=== PATIENT | male | born 1950 | race Caucasian/White ===

== ENCOUNTER 2019-09-01 08:09 | Day surgery (SDC) | payer MEDICARE, BC, SELFPAY ==
[2019-08-31 11:30] VITALS: BMI 29.4
[2019-09-01 08:54] VITALS: BP 144/92; PULSE 65; RESP 18; TEMP 36.3; O2SAT 96
[2019-09-01] MEDS: sodium chloride 0.9% 1,000 ML 30 ML IV (08:54)
--- NOTE | 2019-09-01 08:54 | PM.HPUD ---
H&P update H&P Update: DATE OF SURGERY/PROCEDURE: 09/01/19 DATE H&P PERFORMED: 08/16/19 H&P UPDATE INFORMATION: H&P completed within last 30 days and No changes to prior documentation PLANNED PROCEDURE: Operation Date: 09/01/19 09:00 Proposed Procedures p Colonoscopy(Not Applicable) - Stanton Tavares MD
--- NOTE | 2019-09-01 09:02 | ANES.PREANES ---
Pre-Anesthetic Assessment Pre-Anesthetic Assessment: Height/Weight: Height 1.78 m Weight 92.986 kg Temp Pulse Resp BP Pulse Ox 97.4 F L 65 18 144/92 96 09/01/19 08:54 09/01/19 08:54 09/01/19 08:54 09/01/19 08:54 09/01/19 08:54 Proposed Procedure: Operation Date: 09/01/19 09:00 Proposed Procedures p Colonoscopy(Not Applicable) - Stanton Tavares MD Was Beta Mari taken within 24 hours: Yes Last intake: Intake Last Liquid Date 08/31/19 Last Liquid Time 13:00 Last Solid Date 08/30/19 Last Solid Time 18:00 Social: Social History: Tobacco and No alcohol Exam: Pre-Anes Outpt Exam: alert, oriented x 3, clear to auscultation bilaterally and regular rate & rhythm Airway: Cervical ROM: WNL MP: 2 Dentition: False History/ROS: No significant history except as noted and No significant complaints Pulmonary: Pulmonary: None reported CV/HEM: CV/HEM: CAD, HTN and UT : Comments: BPH Hepatic: Hepatic: None reported GI: GI: GERD Musc/skel: Musc/skel: RA Neuropsych: Neuropsych: None reported Anesthetic Plan: ASA status: III Anesthesia: MAC Risk of > 500 ml blood loss (7ml/kg in children): No Meds/Allergies Current Medications: Current Medications Generic Name Dose Route Start Last Admin Trade Name Freq PRN Reason Stop Dose Admin Sodium Chloride 1,000 mls @ 30 ml s/hr 09/01/19 08:45 09/01/19 08:54 Sodium Chloride 0.9% IV 09/02/19 08:44 30 mls/hr .Q24H MICKY Administration Data Anesthesia Cardiac Studies: No Data to Display
[2019-09-01 09:20] VITALS: BP 94/62; PULSE 73; RESP 20; TEMP 37.2; O2SAT 94
[2019-09-01 09:39] VITALS: BP 136/86; PULSE 72; RESP 18; O2SAT 94
== END 2019-09-01 09:54 | disposition home or self-care (01) ==
PROVIDERS: Family Provider Family Medicine; PCP Family Medicine; Visit Provider Surgery
PROC: 0DJD8ZZ Inspection of Lower Intestinal Tract, Via Natural or Artificial Opening Endoscopic (ICD-10-PCS; CPT 45378; principal; 2019-09-01 09:00)
DX: Z12.11 Encounter for screening for malignant neoplasm of colon (principal); Z86.010 Personal history of colon polyps; Z80.0 Family history of malignant neoplasm of digestive organs; K57.30 Diverticulosis of large intestine without perforation or abscess without bleeding; K64.8 Other hemorrhoids; D12.2 Benign neoplasm of ascending colon; I25.10 Atherosclerotic heart disease of native coronary artery without angina pectoris; I10 Essential (primary) hypertension; I25.2 Old myocardial infarction; N40.0 Benign prostatic hyperplasia without lower urinary tract symptoms; K21.9 Gastro-esophageal reflux disease without esophagitis; M19.90 Unspecified osteoarthritis, unspecified site; E78.00 Pure hypercholesterolemia, unspecified; Z87.891 Personal history of nicotine dependence; Z79.82 Long term (current) use of aspirin; Z82.49 Family history of ischemic heart disease and other diseases of the circulatory system
CPT/HCPCS: 12345; 45385; 88305; J7030

== ENCOUNTER 2020-09-16 08:46 | Emergency (ER) | payer MEDICARE, BC, SELFPAY ==
[2020-09-16 08:53] VITALS: BP 158/89; PULSE 65; RESP 16; TEMP 36.6; O2SAT 99; BMI 31.2
--- NOTE | 2020-09-16 09:04 | ED_ITS ---
HPI - Extremity Problem General: Chief complaint: Extremity Injury, Upper Stated complaint: fall, r wrist injury Time Seen by Provider: 09/16/20 08:52 History of Present Illness: HPI Narrative: Patient arrives with right wrist pain suffered after a fall this morning while he is walking on ice. Complaint: extremity pain and joint pain Onset (ago): minute(s) Pain Consistency: constant Location: right and upper extremity Severity scale (1-10): 4 Quality: aching Radiation: none Relieving factors: immobilization Exacerbating factors: range of motion Associated symptoms: Reports no associated symptoms; Deny chest pain, fever(s) or rash Review of Systems Const: Denies: fever(s), chills or body aches Eyes: Denies: change in vision or blurry vision ENMT: Denies: throat pain or nasal congestion Card: Denies: chest pain or dyspnea on exertion Resp: Denies: dyspnea, productive cough or non-productive cough GI: Denies: abdominal pain, nausea or vomiting : Denies: difficulty urinating Musc: Reports: extremity pain, joint pain (Right wrist) and other (Patient denies any other injuries) Skin/Breast: Denies: rash Neuro: Reports: other (Patient did not strike his head); Denies: headache(s) Psych: Denies: anxiety or depression Walter/Lymph: Denies: easy bruising Physical Exam Const: COMMON NORMALS: no acute distress, average body habitus and patient oriented x3 HENMT: COMMON NORMALS: normocephalic HEAD & SCALP: normal to inspection and normocephalic FACE & SINUS: normal facial exam Eye: COMMON NORMALS: conjunctivae normal GENERAL EYE: appearance normal, both eyes and all related structures CONJUNCTIVA: Yes conjunctivae normal Neck/C-Spine: COMMON NORMALS: no JVD Chest: COMMONS NORMALS: normal inspection of the chest Resp: COMMON NORMALS: normal respiratory effort and clear to auscultation bilaterally AUSCULTATION: clear to auscultation bilaterally Cardio: COMMON NORMALS: no JVD, regular rate and regular rhythm RATE: regular rate RHYTHM: regular rhythm GI: COMMON NORMALS: Normal to inspection, nondistended, normoactive bowel sounds present Extremity: RIGHT UPPER EXTREMITY: Yes wrist (Mild deformity) Right wrist: Yes inspection, Yes palpation (Pain with palpation), Yes ROM (Decreased in the wrist fingers are fine) and Yes neurovascular exam (Intact) Neuro: COMMON NORMALS: patient oriented x3 Course Vital Signs: Vital signs: Vital Signs Temperature 97.8 F 09/16/20 08:53 Pulse Rate 66 09/16/20 09:57 Respiratory Rate 18 09/16/20 09:57 Blood Pressure 152/76 09/16/20 09:57 Pulse Oximetry 99 09/16/20 09:57 MDM - Extremity (Nontraumatic) MDM Narrative: Medical decision making narrative: Discussed case with Dr. Fowler. Agrees plan of care. Patient requested Dr. More for follow-up. Neurovascular status good after splinting. Patient tolerated well Discharge Plan Discharge Patient Disposition: Home Clinical Impression: Fracture of wrist Qualifiers: Encounter type: initial encounter Fracture type: closed Laterality: right Qualified Code(s): S62.101A - Fracture of unspecified carpal bone, right wrist, initial encounter for closed fracture Condition: Stable Prescriptions: New tramadol 50 mg tablet 50 mg PO TID PRN (Reason: pain) Qty: 30 RF: 0 No Action atorvastatin [Lipitor] 20 mg Tablet 20 mg PO DAILY RF: 0 aspirin [Aspir-81] 81 mg Tablet,Delayed Release (Dr/Ec) 81 mg PO DAILY RF: 0 tamsulosin [Flomax] 0.4 mg Capsule 0.8 mg PO DAILY RF: 0 amlodipine [Norvasc] 10 mg Tablet 10 mg PO DAILY RF: 0 dutasteride [Avodart] 0.5 mg Capsule 0.5 mg PO DAILY RF: 0 multivitamin Tablet 1 tab PO DAILY RF: 0 Glucosamine Chondroitin 550-30-1 mg Capsule 1 cap PO DAILY RF: 0 Discharge Orders: Discharge ED (Routine); Ordered 09/16/20 Ordered By: Slim Baker Referrals: Nancy Ramirez MD [Primary Care Provider] - Discharge Diet: Usual diet Discharge Activity: Increase activity as tolerated Patient Instructions: Wrist Fracture in Adults (ED), Opioid Safety Activity Restrictions/Additional Instructions: Follow-up with medical provider as directed. Take medications as prescribed. Return to the ER or your medical provider if condition worsens. Please read and understand discharge instructions. If any questions ask please. You will be contacted by the hospital on Thursday for follow-up appointment with orthopedics clinic. Wear the splint at all times. Keep extremity elevated if possible. Coding Level of Care Code ED Product Engineering Manager for Chg Fwd Exam Comprehensive
--- NOTE | 2020-09-16 09:04 | XRR_ITS ---
PROCEDURE INFORMATION: Exam: XR Right Wrist Exam date and time: 09/16/2020 9:04 AM Age: 70 years old Clinical indication: Injury or trauma; Fall; Blunt trauma (contusions or hematomas); Wrist; Right; Additional info: Fall, pain TECHNIQUE: Imaging protocol: XR Right wrist. Views: 3 or more views. COMPARISON: No relevant prior studies available. FINDINGS: Bones/joints: Acute intra-articular fracture of the distal right radius with ulnar displacement of a major fracture fragment. Well corticated ossific densities adjacent to the ulnar styloid. Degenerative change. Soft tissues: Mild soft tissue swelling. XR/XR wrist RT min 3V* [id number] IMPRESSION: Acute intra-articular fracture of the distal right radius with ulnar displacement of a major fracture fragment.
[2020-09-16 09:57] VITALS: BP 152/76; PULSE 66; RESP 18; O2SAT 99
--- NOTE | 2020-09-17 10:28 | DCPLANNER ---
real estate sales manager received message to schedule follow-up appointment with Dr. More. real estate sales manager called ortho and spoke to Neena. real estate sales manager provided patient information. Ortho will contact patient with appointment information.
--- NOTE | 2020-09-19 12:50 | DCPLANNER ---
Patient had a follow up appointment scheduled for 09.17.20 with ortho - patient did attend appointment.
== END 2020-09-16 09:59 | disposition home or self-care (01) ==
PROVIDERS: Emergency Provider Nurse Practitioner Family; PCP Family Medicine
DX: S52.571A Other intraarticular fracture of lower end of right radius, initial encounter for closed fracture (principal); W00.0XXA Fall on same level due to ice and snow, initial encounter; Z79.82 Long term (current) use of aspirin
CPT/HCPCS: 29125; 73110; 99283

== ENCOUNTER → 2020-09-17 13:17 | Outpatient (BNVA) | payer MEDICARE, BC, SELFPAY | PROVIDERS: PCP Family Medicine; Visit Provider Orthopaedic Surgery | DX: Z01.812 Encounter for preprocedural laboratory examination (principal); S62.101A Fracture of unspecified carpal bone, right wrist, initial encounter for closed fracture; X58.XXXA Exposure to other specified factors, initial encounter | CPT/HCPCS: 87635 ==

== ENCOUNTER 2020-09-20 14:09 | Day surgery (SDC) | payer MEDICARE, BC, SELFPAY ==
--- NOTE | 2020-09-20 | SCC_ITS ---
Procedure Done: Open reduction and internal fixation right distal radius 76.5seconds of fluoroscopic guidance, for a cumulative dose of 0.83 mGy, was provided to Dr. More by the radiology department. C-arm images of the RIGHT wrist were saved for the patient's permanent record. [facility]
[2020-09-20 08:42] VITALS: BMI 31.2
[2020-09-20] MEDS: sodium chloride 0.9% 1,000 ML 30 ML IV (14:50)
[2020-09-20] MEDS: midazolam 1 mg/mL INJ 2 mL 2 MG IVP (15:00)
--- NOTE | 2020-09-20 15:04 | ANES.PREANE2 ---
Pre-Anesthetic Assessment Pre-Anesthetic Assessment: Height/Weight: Height 1.78 m Weight 98.883 kg Preop Diagnosis: Fracture right distal radius Proposed Procedure: Operation Date: 09/20/20 16:05 Proposed Procedures p ORIF Wrist 02718 S52.531A(Right) - Thai More MD Familial anesthetic complications: None Was Beta Mari taken within 24 hours: N/A Last intake: Intake Last Liquid Date 09/19/20 Last Liquid Time 21:00 Last Solid Date 09/19/20 Last Solid Time 21:00 Social: Social History: Tobacco and No alcohol Exam: Pre-Anes Outpt Exam: alert, oriented x 3, clear to auscultation bilaterally and regular rate & rhythm Airway: Cervical ROM: WNL MP: 2 Dentition: False CV/HEM: CV/HEM: CAD, HTN and [place] (1998) GI: GI: GERD Musc/skel: Musc/skel: RA Anesthetic Plan: ASA status: 3 Anesthesia: General and Regional (specify below) Risk of > 500 ml blood loss (7ml/kg in children): No Meds/Allergies Current Medications: Current Medications Generic Name Dose Route Start Last Admin Trade Name Freq PRN Reason Stop Dose Admin Midazolam HCl 2 mg 09/20/20 14:39 09/20/20 15:00 Midazolam 1 Mg/M l Inj 2 Ml IVP 2 mg Q5M PRN Administration Preop Anxiety Data Anesthesia Cardiac Studies: No Data to Display
--- NOTE | 2020-09-20 15:05 | ANES.PROC ---
Anesthesia Procedures Procedure/Date: 09/20/20 Nerve Block ^: Nerve Block 1: Main Anesthesia: general anesthesia Time Out Performed: Yes Consent: requested by attending/covering physician, from patient, from other, risks and benefits reviewed and patient agrees to proceed Nerve block location: axillary (R) Anesthesia monitors applied: pulse oximetry, EKG, BP cuff and oxygen Nerve block position: supine Anesthetic Used: ropivicaine 0.5% and with decadron (4 mg) Amount of anesthesia used (mL): 30 Ultrasound used to: recognize landmarks Nerve Stimulator Used?: No Interscalene/Femoral BLK: 2 stimuplex 22 g needle used for position and inplane approach, visualize local anesthetic spread and no vascular puncture identified Injection: neg aspiration of heme and paresthesia +/- Patient Tolerated Procedure: no complications Complications: none
--- NOTE | 2020-09-20 17:55 | W.PM.OPSUD ---
Surgery/Procedure H&P Update DATE OF PROCEDURE: September 20, 2020 DATE H&P PERFORMED: 08/16/19 PREOP DIAGNOSIS: Fracture right distal radius PLANNED PROCEDURE: Operation Date: 09/20/20 16:05 Proposed Procedures p ORIF Wrist 06319 S52.531A(Right) - Thai More MD
--- NOTE | 2020-09-20 19:33 | XR_ITS ---
WS: [id number] C-ARM RADIOGRAPHS RIGHT WRIST; 3 IMAGES HISTORY: RIGHT WRIST FRACTURE COMPARISON: 09/16/2020 Intraoperative imaging during plate and screw fixation distal comminuted radial fracture. Radial frac ture now in good position and alignment. XR/XR wrist RT 2V [id number] IMPRESSION: Intraoperative imaging during ORIF radial fracture.
--- NOTE | 2020-09-20 19:40 | PM.OP ---
Operative Report Date of procedure: September 20, 2020 Pre-op Diagnosis: Fracture right distal radius, intra-articular 3 part Post-op diagnosis: same Post-op Findings: Same Procedure Done: Open reduction and internal fixation right distal radius Implants: [place] Variax mild intermediate length plate Pathology: none sent Anesthesia: Nerve Block (Axillary nerve block) Estimated blood loss (mL): 50 Tourniquet time (min): 41 Findings: Patient had a 3 part intra-articular fracture of the right distal radius consisting of a dorsal ulnar and volar radial fragment. There was sagittal displacement and shortening of both articular fragment Condition: stable Procedure: Initial attempts were made at closed reduction however a satisfactory stable reduction could not be obtained. A decision was made to proceed with open reduction internal fixation.A 5 cm long incision was made along over the flexor carpi radialis tendon. Dissection was carried down through the tendon sheath. Dissection was carried down bluntly to the pronator quadratus. The pronator quadratus was elevated off of the distal radius leaving a cuff for later repair. Closed reduction was accomplished of the distal radius. A [place] Variax wide immediate length plate was applied and positioned. The volar fragment was brought out to length and length and maintained with the volar buttress position of the plate. With the plate in position and the volar fragment secured. Traction was applied across the wrist and a volar directed force across the dorsal ulnar fragment reducing the fragment. It was fixed distally with 5 locking screws and proximally with 3 bicortical screws. The variable angle guide was used to direct to fragment in to the radial styloid fragment and 3 screws into the dorsal lunate facet fragment intraoperative imaging showed excellent position of the hardware. The wound was irrigated with saline. The pronator quadratus was reapproximated with 2-0 Vicryl. Subcutaneous tissues were closed with 2-0 Vicryl. The skin was closed with skin hansel. Sterile dressings were applied. The patient was taken to outpatient surgery in stable condition.
[2020-09-20 19:42] VITALS: BP 142/81; PULSE 67; RESP 18; TEMP 36.6; O2SAT 97
[2020-09-20 20:08] VITALS: BP 150/84; PULSE 57; RESP 20; TEMP 36.3; O2SAT 94
--- NOTE | 2020-09-20 20:30 | ANE.PACU2 ---
Inpatient post-anesthesia follow up: Airway intact: Yes Vital signs: Temperature 97.4 F Pulse Rate 57 Respiratory Rate 20 Blood Pressure 150/84 Pulse Oximetry 94 Oxygen Delivery Me thod Room Air Oxygen Flow Rate Fraction of Inspir ed Oxygen Hydration adequate: Yes Nausea and vomiting: No Pain level: 1 Mental status: Baseline
== END 2020-09-20 20:26 | disposition home or self-care (01) ==
PROVIDERS: PCP Family Medicine; Visit Provider Orthopaedic Surgery
PROC: (CPT 25609; principal; 2020-09-20 16:05)
DX: S52.531A Colles' fracture of right radius, initial encounter for closed fracture (principal); W00.0XXA Fall on same level due to ice and snow, initial encounter; Z79.82 Long term (current) use of aspirin; M19.031 Primary osteoarthritis, right wrist; I25.10 Atherosclerotic heart disease of native coronary artery without angina pectoris; I10 Essential (primary) hypertension; I25.2 Old myocardial infarction; K21.9 Gastro-esophageal reflux disease without esophagitis
CPT/HCPCS: 25609; 64417; 73100; 76000; 76942; C1713; J0690; J1100; J2250; J2704; J2795; J7030

== ENCOUNTER 2020-10-03 09:56 | Outpatient (CLI) | payer MEDICARE, BC, SELFPAY | END 2020-10-03 09:57 | disposition home or self-care (01) | LOC: SPT 09:57 | PROVIDERS: PCP Family Medicine; Visit Provider Orthopaedic Surgery | DX: Z46.89 Encounter for fitting and adjustment of other specified devices (principal); S52.531D Colles' fracture of right radius, subsequent encounter for closed fracture with routine healing; X58.XXXD Exposure to other specified factors, subsequent encounter | CPT/HCPCS: L3908 ==

== ENCOUNTER → 2020-10-24 10:11 | Outpatient (BNVA) | payer MEDICARE, BC, SELFPAY | PROVIDERS: PCP Family Medicine; Visit Provider Orthopaedic Surgery | DX: M19.031 Primary osteoarthritis, right wrist (principal); S52.531A Colles' fracture of right radius, initial encounter for closed fracture; Z98.890 Other specified postprocedural states | CPT/HCPCS: 73110 ==

== ENCOUNTER → 2020-11-21 10:27 | Outpatient (BNVA) | payer MEDICARE, BC, SELFPAY | PROVIDERS: PCP Family Medicine; Visit Provider Orthopaedic Surgery | DX: S52.531A Colles' fracture of right radius, initial encounter for closed fracture (principal); M19.031 Primary osteoarthritis, right wrist; X58.XXXA Exposure to other specified factors, initial encounter; Z98.890 Other specified postprocedural states | CPT/HCPCS: 73110 ==

== ENCOUNTER 2020-12-09 13:24 | Emergency (ER) | payer MEDICARE, BC, SELFPAY ==
[2020-12-09 13:54] VITALS: BP 160/84; PULSE 64; RESP 18; TEMP 36.4; O2SAT 96; BMI 31.5
--- NOTE | 2020-12-09 14:54 | CTR_ITS ---
PROCEDURE INFORMATION: Exam: CT Abdomen And Pelvis With Contrast Exam date and time: 12/09/2020 3:52 PM Age: 70 years old Clinical indication: Abdominal pain; Generalized; Prior surgery; Surgery type: Hernia; Additional info: B/l lower abd pain, fevers TECHNIQUE: Imaging protocol: Computed tomography of the abdomen and pelvis with contrast. Radiation optimization: All CT scans at this facility use at least one of these dose optimization techniques: automated exposure control; mA and/or kV adjustment per patient size (includes targeted exams where dose is matched to clinical indication); or iterative reconstruction. Contrast material: OMNI 300; Contrast volume: 95 ml; Contrast route: INTRAVENOUS (IV); COMPARISON: CT abdomen pelvis w con* [id number] 12/15/2013 9:58 PM RADIATION DOSE METRICS: Total DLP (mGy-cm): 1782.41 FINDINGS: Liver: Normal. No mass. Gallbladder and bile ducts: Normal. No calcified stones. No ductal dilation. Pancreas: Normal. No ductal dilation. Spleen: Normal. No splenomegaly. Adrenal glands: Normal. No mass. Kidneys and ureters: Normal. No hydronephrosis. Stomach and bowel: Mild severity colonic diverticulosis. No inflammatory wall thickening of bowel loops. Negative for bowel obstruction. Negative for bowel perforation. Appendix: No evidence of appendicitis. Intraperitoneal space: Unremarkable. No free air. No significant fluid collection. Vasculature: Scattered atherosclerosis. No aneurysm. No dissection. Lymph nodes: Unremarkable. No enlarged lymph nodes. Urinary bladder: Unremarkable as visualized. Reproductive: Moderate prostate gland enlargement. Bones/joints: Grade 1 L5-S1 spondylolisthesis. Bilateral L5 pars defects.The lumbar spine demonstrates moderate discogenic and apophyseal joint degenerative changes at multiple levels. No acute fractures. Soft tissues: Unremarkable. CT/CT abdomen pelvis w con* [id number] IMPRESSION: Negative for acute pathology in the abdomen or pelvis. Radiation Dose CTDIVOL = (mGy): DLP = 1782.41 (mGy-cm)
[2020-12-09 15:21] LABS: Basophils % 0.3 %; Hematocrit 42.4 % (42.0-52.0); Hemoglobin 14.3 g/dL (11.7-16.6); Lymphocytes % 26.5 %; Mean Corpuscular HGB Conc 33.7 g/dL (30.0-36.0); Mean Corpuscular Hemoglobin 28.1 pg (28.0-34.0); Mean Corpuscular Volume 83.5 fL (80-94); Mean Platelet Volume 10.9 fL (7.4-10.4); Monocytes # 0.6 10^3/uL (0.2-0.9); Monocytes % 16.2 %; Neutrophils # 2.02 10^3/uL (1.8-7.7); Neutrophils % 56.4 %; Nucleated Red Blood Cells % 0 %; Platelet Count 141 10^3/cmm (130-400); Red Blood Count 5.08 10^6/uL (4.1-5.3); Red Cell Distribution Width 13.4 % (12.1-15.1); White Blood Count 3.6 10^3/uL (4.0-10.0)
[2020-12-09 15:24] LABS: Add Urine Microscopic? NO; Charge for UA Resulting for Rev
[2020-12-09 15:33] LABS: Alanine Aminotransferase 42 U/L (0-41); Albumin Level 3.9 g/dL (3.5-5.2); Alkaline Phosphatase 79 IU/L (40-130); Anion Gap 15.7 (5-19); Aspartate Amino Transferase 29 U/L (0-40); Blood Urea Nitrogen 16 mg/dL (8-23); Calcium 8.3 mg/dL (8.5-10.5); Carbon Dioxide 27 mmol/L (22-29); Chloride 102 mmol/L (98-107); Globulin 2.7 g/dL (1.3-4.6); Glomerular Filtration Rate 83.4 mL/min (90-130); Glucose 94 mg/dL (65-115); Lipase 18 U/L (13-60); Osmolality Calculated 293 mOsm/kg (285-295); Potassium 3.7 mmol/L (3.5-5.1); Sodium 141 mmol/L (136-145); Total Protein 6.6 g/dL (6.6-8.7)
[2020-12-09 15:35] LABS: Bilirubin Urine Neg (Negative); Blood Urine Neg (Negative); Glucose Urine UA Norm (Normal); Ketones Urine Negative (Negative); Leukocyte Esterase Urine Negative (Negative); Nitrate Urine Negative (Negative); Protein Urine Neg (Negative); Specific Gravity, Urine 1.015 (1.005-1.030); Urine Appearance Clear (CLEAR); Urine Color Yellow (Yellow); Urobilinogen Urine 1 mg/dL (Negative); pH Urine 5 (5-7)
--- NOTE | 2020-12-09 16:08 | ED_ITS ---
HPI - Abdominal Pain General: Chief Complaint: Abdominal Pain Stated Complaint: AB PAIN Time Seen by Provider: 12/09/20 14:38 History of Present Illness: HPI narrative: Patient is complaining of abdominal pain for about 10 days but it is also been associated with a recent tick bite and headache some body aches night sweats and chills. He denies any chest pain shortness of breath or Covid type symptoms. His stools have been a little bit more on the constipation side he denies any fever or diarrhea as he denies any rashes he did have a tick on him about 10 days ago he has had previous hernia repair on his left abdominal area he vomited once today denies any blood in his stools or his vomitus he has taken some Aleve occasionally but none recently Review of Systems Narrative: General: denies fatigue, night sweats and chills HEENT: denies ear pain, denies nasal congestion, denies vision changes, denies sore throat Neck: denies masses or pain Resp: denies cough, denies shortness of breath, denies pleuritic pain Cardio: denies chest pain, denies edema GI: Mid to lower bilateral abdominal pain, vomiting x1, denies black/tarry or bloody stools : denies hematuria, denies dysuria Neuro: denies headache, denies dizziness, denies motor or sensory changes Musculoskeletal: denies pain, denies swelling Skin: denies rashes Psych: denies SI or HI Endocrine: denies thyroid symptoms, denies lymphadenopathy all over ROS reviewed and patient denies Physical Exam Narrative: EXAM NARRATIVE: General: a/o/3, no distress Head: atraumatic HEENT: normal eyes, normal conjunctiva, normal hearing, normal external nose, normal mouth, mucous membranes moist Neck: FROM, trachea midline Chest: normal expansion, no gross deformities Resp: normal speech, no retractions, no accessory muscle use, CTA bilaterally Cardio: regular rate and rhythm and no murmur, no peripheral edema, normal peripheral pulses GI: soft, flat mild mid bilateral lower is tender, no guarding normal BS : deferred Musculoskeletal: FROM, no pain or gross deformities Neuro: a/o appropriate for age, no gross motor or sensory deficits, CN II-XII grossly intact, normal coordination, normal speech Skin: no rashes Psych: cooperative, normal mood and effect Course Vital Signs: Vital signs: Vital Signs Temperature 97.5 F L 12/09/20 13:54 Pulse Rate 64 12/09/20 13:54 Respiratory Rate 18 12/09/20 13:54 Blood Pressure 160/84 12/09/20 13:54 Pulse Oximetry 96 12/09/20 13:54 MDM - Abdominal Pain MDM Narrative: Medical decision making narrative: Discussed with patient and that tick illness can cause some abdominal pain however were concerned that possibly could he have some type of diverticulitis or other type of colitis or bowel obstruction so she and he are both agreeable to go ahead and check a CAT scan. His white count is on the lower end and his platelets are also on the lower end but his liver functions are normal I do not have any thing to compare it to as he gets his lab drawn at a doctor's office. Discussed with him CT findings are normal. I do not see any rashes on him however discussed with them petechiae and signs and symptoms of recommended spotted fever. They want a go ahead and be treated for tick illness I agree his white count is on the lower and so are his platelets his liver functions have not bumped yet but this can be delayed. Lab Data: Labs: Lab Results 12/09/20 12/09/20 12/09/20 Range/Units 15:00 15:00 15:02 WBC 3.6 L (4.0-10.0) 10^3/ uL RBC 5.08 (4.1-5.3) 10^6/u L Hgb 14.3 (11.7-16.6) g/dL Hct 42.4 (42.0-52.0) % MCV 83.5 (80-94) fL MCH 28.1 (28.0-34.0) pg MCHC 33.7 (30.0-36.0) g/dL RDW 13.4 (12.1-15.1) % Plt Count 141 (130-400) 10^3/c mm MPV 10.9 H (7.4-10.4) fL Neut % (Auto) 56.4 % Lymph % (Auto) 26.5 % [place] % (Auto) 16.2 % Eos % (Auto) 0.0 % Baso % (Auto) 0.3 % Neut # (Auto) 2.02 (1.8-7.7) 10^3/u L Lymph # (Auto) 1.0 (0.8-4.8) 10^3/u L [place] # (Auto) 0.6 (0.2-0.9) 10^3/u L Eos # (Auto) 0.0 (0.0-0.8) 10^3/u L Baso # (Auto) 0.0 (0.0-0.1) 10^3/u L Nucleated RBC % (a uto) 0 % Nucleated RBCs # 0.0 /100WBC Sodium 141 (136-145) mmol/L Potassium 3.7 (3.5-5.1) mmol/L Chloride 102 (98-107) mmol/L Carbon Dioxide 27 (22-29) mmol/L Anion Gap 15.7 (5-19) BUN 16 (8-23) mg/dL Creatinine 0.9 (0.7-1.2) mg/dL GFR Calculation 83.4 L (90-130) mL/min Glucose 94 (65-115) mg/dL Calculated Osmolal ity 293 (285-295) mOsm/k g Calcium 8.3 L (8.5-10.5) mg/dL Total Bilirubin 1.0 (0.15-1.2) mg/dL AST 29 (0-40) U/L ALT 42 H (0-41) U/L Alkaline Phosphata se 79 (40-130) IU/L Total Protein 6.6 (6.6-8.7) g/dL Albumin 3.9 (3.5-5.2) g/dL Globulin 2.7 (1.3-4.6) g/dL Lipase 18 (13-60) U/L Urine Color Yellow (Yellow) Urine Appearance Clear (CLEAR) Urine pH 5 (5-7) Ur Specific Gravit y 1.015 (1.005-1.030) Urine Protein Neg (Negative) Urine Glucose (UA) Norm (Normal) Urine Ketones Negative (Negative) Urine Blood Neg (Negative) Urine Nitrate Negative (Negative) Urine Bilirubin Neg (Negative) Urine Urobilinogen 1 H (Negative) mg/dL Ur Leukocyte Hilda ase Negative (Negative) Discharge Plan Discharge Patient Disposition: Home Clinical Impression: Abdominal pain Qualifiers: Abdominal location: unspecified location Qualified Code(s): R10.9 - Unspecified abdominal pain Tick bite Qualifiers: Encounter type: initial encounter Qualified Code(s): W57.XXXA - Bitten or stung by nonvenomous insect and other nonvenomous arthropods, initial encounter Leukopenia Qualifiers: Leukopenia type: other Qualified Code(s): D72.818 - Other decreased white blood cell count Condition: Stable Prescriptions: New doxycycline hyclate 100 mg tablet 100 mg PO BID 10 Days Qty: 20 RF: 0 No Action hydrocodone-acetaminophen [[place]] 5-325 mg tablet 1 tab PO Q4H PRN (Reason: pain) 7 Days Qty: 40 RF: 0 (DME) Cock Up Splint See Rx Instructions .ROUTE .MEDSUPPLY Qty: 1 RF: 0 oxycodone-acetaminophen [Percocet] 5-325 mg tablet 1 tab PO Q4H PRN (Reason: pain) 7 Days Qty: 30 RF: 0 atorvastatin [Lipitor] 20 mg Tablet 20 mg PO DAILY RF: 0 aspirin [Aspir-81] 81 mg Tablet,Delayed Release (Dr/Ec) 81 mg PO DAILY RF: 0 tamsulosin [Flomax] 0.4 mg Capsule 0.8 mg PO DAILY RF: 0 amlodipine [Norvasc] 10 mg Tablet 10 mg PO DAILY RF: 0 dutasteride [Avodart] 0.5 mg Capsule 0.5 mg PO DAILY RF: 0 multivitamin Tablet 1 tab PO DAILY RF: 0 Glucosamine Chondroitin 550-30-1 mg Capsule 1 cap PO DAILY RF: 0 tramadol 50 mg tablet 50 mg PO TID PRN (Reason: pain) Qty: 30 RF: 0 Discharge Orders: Discharge ED (Routine); Ordered 12/09/20 Ordered By: Neena Deleon Referrals: Nancy Ramirez MD [Primary Care Provider] - Discharge Diet: Usual diet Discharge Activity: Resume usual activity Patient Instructions: Abdominal Pain (ED) Activity Restrictions/Additional Instructions: Monitor for fevers take Tylenol or ibuprofen. Tick illness can cause headaches fatigue body aches and abdominal pain take all of the antibiotics. Follow-up with your provider return if worsening of symptoms monitor for rashes return if stiff neck headaches changes Thank you for choosing [facility] for your healthcare needs today. Please realize this is an emergency room and that we are providing you with a medical screening exam and this may not be complete and all inclusive of all the testing and or work up that you may need to determine your ailment or severity of your illness. It is very important that you follow up as instructed or that you return to the Emergency Department should you have concerns or if your condition changes or worsens in any way. Coding Level of Care Code ED Accounts Manager for Jennifer Richard
[2020-12-09] MEDS: iohexol 300 mg/mL 100 mL Btl IV (16:23)
[2020-12-09] MEDS: doxycycline 100 mg Tablet PO (17:04)
[2020-12-09 17:15] VITALS: BP 149/87; PULSE 60; RESP 15; O2SAT 96
== END 2020-12-09 17:16 | disposition home or self-care (01) ==
PROVIDERS: Emergency Medicine; Emergency Provider Emergency Medicine; PCP Family Medicine
DX: R10.9 Unspecified abdominal pain (principal); D72.818 Other decreased white blood cell count; T14.8XXA Other injury of unspecified body region, initial encounter; W57.XXXA Bitten or stung by nonvenomous insect and other nonvenomous arthropods, initial encounter
CPT/HCPCS: 74177; 80053; 81003; 83690; 85025; 99283; Q9967

== ENCOUNTER 2021-01-25 10:35 | Outpatient (CLI) | payer MEDICARE, BC, SELFPAY ==
--- NOTE | 2021-01-25 10:41 | XR_ITS ---
WS: [id number] Chest 2 views, 01/25/2021 Clinical Data: DYSPNEA/FATIGUE/ATHEROSCLEROTIC HEART DZ Comparison: Portable chest, 12/15/2013. Findings: No nodules, masses or effusions are seen. The heart is normal. The pulmonary vascularity is not increased. No pneumonia or pneumothorax is seen. The aortic arch and descending aorta are minima lly tortuous. XR/XR chest 2V* [id number] Impression: Atherosclerosis.
== END 2021-01-25 10:36 | disposition home or self-care (01) ==
PROVIDERS: PCP Family Medicine; Visit Provider Family Medicine
DX: R06.00 Dyspnea, unspecified (principal); R53.83 Other fatigue; I25.10 Atherosclerotic heart disease of native coronary artery without angina pectoris; I70.90 Unspecified atherosclerosis
CPT/HCPCS: 71046

== ENCOUNTER 2021-09-22 18:42 | Emergency (ER) | payer MEDICARE, BC, SELFPAY ==
[2021-09-22 18:55] VITALS: BP 170/85; PULSE 65; RESP 16; TEMP 36.8; O2SAT 94; BMI 31.5
--- NOTE | 2021-09-22 19:17 | XRR_ITS ---
PROCEDURE INFORMATION: Exam: XR Chest Exam date and time: 09/22/2021 7:17 PM Age: 71 years old Clinical indication: Cough TECHNIQUE: Imaging protocol: XR of the chest. Views: 1 view. COMPARISON: CR XR chest 2V* [id number] 01/25/2021 11:08 AM FINDINGS: Lungs: Minimal left lower lung atelectasis versus infiltrate. Pleural spaces: Unremarkable. No pleural effusion. No pneumothorax. Heart/Mediastinum: Cardiomegaly. Bones/joints: Unremarkable. XR/XR chest 1V portable [id number] IMPRESSION: 1. Minimal left lower lung atelectasis versus infiltrate. 2. Cardiomegaly.
--- NOTE | 2021-09-22 19:19 | W.ED.COVID ---
HPI - COVID General: Chief Complaint: COVID symptoms Stated Complaint: Covid + Time Seen by Provider: 09/22/21 19:02 Source: patient Mode of arrival: ambulatory Triage information: Has fever, cough or shortness of breath. No known COVID + exposure last 14 days History of Present Illness: This patient presents to the emergency department because of persistent dry cough generalized malaise and weakness. He states he was tested positive for COVID-19 last Thursday. He states that he had fever for the first 2 to 3 days of his illness but is not subsequently had any fever. He has had a pulse oximeter at home and his is checks his oxygen level is always been in the 95% range on room air. He states he generally has body aches and fatigue and no energy but has been eating and drinking. He did have some loose stools the first couple of days of his illness but is subsequently not any more loose stools. He has no history of cardiopulmonary disease. Does have history of hypertension but is not diabetic. He is taking all his usual medications as prescribed. His is not currently ill. He has received Covid immunizations previously. complaint: known COVID positive COVID 19 common symptoms: positive fever(s), non-productive cough, fatigue, body aches and diarrhea; negative dyspnea, headache(s), throat pain, nausea or vomiting COVID 19 other sytmptoms: negative chest pain Pertinent comorbid conditions: hypertension COVID Results: Nasal/Oral Coronavirus 2019 PCR Not detected 09/17/20 13:17 09/17/20 Review of Systems Const: Reports: fever(s), body aches and fatigue Eyes: Denies: change in vision or blurry vision ENMT: Denies: throat pain, odynophagia or hoarseness Card: Denies: chest pain, palpitations, irregular heart rhythm, edema, swelling of feet/ankles or syncope Resp: Reports: non-productive cough; Denies: dyspnea or wheezing GI: Reports: diarrhea; Denies: abdominal pain, nausea or vomiting : Denies: flank pain, difficulty urinating or dysuria Musc: Denies: neck pain, back pain or extremity pain Skin/Breast: Denies: rash or pruritus Neuro: Denies: headache(s), numbness in extremities, weakness in extremities or sensory changes Psych: Denies: anxiety or depression Endo: Denies: polyuria or polydipsia Walter/Lymph: Denies: easy bruising or easy bleeding Physical Exam Narrative: EXAM NARRATIVE: Patient makes good eye contact. Speech is goal-directed. No conversational dyspnea. Const: COMMON NORMALS: no acute distress, patient oriented x3 and healthy appearing GENERAL APPEARANCE: comfortable and well developed HENMT: COMMON NORMALS: normocephalic, atraumatic, Normal nasal mucous membranes and turbinates present, moist oral mucous membranes and oropharynx normal HEAD & SCALP: normocephalic and atraumatic NOSE: Normal nasal mucous membranes and turbinates present Eye: COMMON NORMALS: Equal, round and reactive pupils present, EOMs intact bilaterally and no scleral icterus PUPIL: Yes Equal, round and reactive pupils present Neck/C-Spine: COMMON NORMALS: full ROM, no lymphadenopathy, supple, no meningeal signs, no JVD and Thyroid normal THYROID: Thyroid normal Lymph: LYMPHATIC: no lymphadenopathy noted Chest: COMMONS NORMALS: normal inspection of the chest Resp: COMMON NORMALS: normal respiratory effort, No retractions, No use of accessory muscles and clear to auscultation bilaterally AUSCULTATION: clear to auscultation bilaterally Cardio: COMMON NORMALS: no JVD, regular rate, regular rhythm, No murmurs present (Cardio) and Peripheral pulses 2+ throughout RATE: regular rate RHYTHM: regular rhythm PERIPHERAL PULSES: Peripheral pulses 2+ throughout GI: COMMON NORMALS: Normal to inspection, nondistended, normoactive bowel sounds present, Soft to palpation, non-tender and no masses PALPATION: Yes Soft to palpation : COMMON NORMALS: Yes no CVA tenderness BLADDER/KIDNEY EXAM: Yes no CVA tenderness Back/Pelvis: COMMON NORMALS: no CVA tenderness, thoracic and lumbar spine normal to inspection, no thoracic nor lumbar tenderness and thoraco-lumbar ROM normal Extremity: COMMON NORMALS: normal to inspection, full ROM, no joint enlargement, no calf tenderness and no pedal edema Neuro: COMMON NORMALS: patient oriented x3, moves all extremities, no focal motor deficits and no sensory deficits noted MENINGEAL SIGNS: Yes no meningeal signs CRANIAL NERVES: Yes CN normal except as noted Course Vital Signs: Vital signs: Vital Signs Temperature 98.2 F 09/22/21 18:55 Pulse Rate 56 L 09/22/21 19:25 Respiratory Rate 18 09/22/21 19:25 Blood Pressure 171/91 09/22/21 19:25 Pulse Oximetry 95 09/22/21 19:26 MDM - COVID Medical Decision Making Patient's chest x-ray does not show any infiltrates, labs are reassuring at this time. He has normal vital signs with a blood pressure in the 140/60 heart rate in the 70s and pulse oximetry on room air between 95 to 97%. Discussed lack of indication for further work-up or treatment of any kind at this time. We also discussed the fact that monoclonal antibody are not approved currently and that they are not effective against the current predominant variant of COVID-19 infecting the country. We discussed continued home care and reasons to return to the emergency department such as pulse oximetry falling below 90%, chest pains, increasing shortness of breath or any other concerns. He acknowledged our discussion. Stable for discharge at this time. Medical Records I reviewed the patient's medical records. Lab Data I reviewed the patient's lab results. : 09/22/21 19:19 09/22/21 19:19 Laboratory Results WBC 6.3 10^3/uL (4.0-10.0) 09/22/21 19:19 RBC 5.35 10^6/uL (4.1-5.3) H 09/22/21 19:19 Hgb 15.2 g/dL (11.7-16.6) 09/22/21 19:19 Hct 45.5 % (42.0-52.0) 09/22/21 19:19 MCV 85.0 fl (80-94) 09/22/21 19:19 MCH 28.4 pg (28.0-34.0) 09/22/21 19:19 MCHC 33.4 g/dL (30.0-36.0) 09/22/21 19:19 RDW 13.2 % (12.1-15.1) 09/22/21 19:19 Plt Count 125 10^3/cmm (130-400) L 09/22/21 19:19 MPV 12.1 fL (7.4-10.4) H 09/22/21 19:19 Neut % (Auto) 60.0 % 09/22/21 19:19 Lymph % (Auto) 29.5 % 09/22/21 19:19 [place] % (Auto) 10.0 % 02/20/22 19:19 Eos % (Auto) 0.0 % 09/22/21 19:19 Baso % (Auto) 0.2 % 09/22/21 19:19 Neut # (Auto) 3.80 10^3/uL (1.8-7.7) 09/22/21 19:19 Lymph # (Auto) 1.9 10^3/uL (0.8-4.8) 09/22/21 19:19 [place] # (Auto) 0.6 10^3/uL (0.2-0.9) 09/22/21 19:19 Eos # (Auto) 0.0 10^3/uL (0.0-0.8) 09/22/21 19:19 Baso # (Auto) 0.0 10^3/uL (0.0-0.1) 09/22/21 19:19 Nucleated RBC % (auto) 0 % 09/22/21 19:19 Nucleated RBCs # 0.0 /100WBC 09/22/21 19:19 Sodium 142 mmol/L (136-145) 09/22/21 19:19 Potassium 4.1 mmol/L (3.5-5.1) 09/22/21 19:19 Chloride 105 mmol/L (98-107) 09/22/21 19:19 Carbon Dioxide 24 mmol/L (22-29) 09/22/21 19:19 Anion Gap 17.1 (5-19) 09/22/21 19:19 BUN 16 mg/dL (8-23) 09/22/21 19:19 Creatinine 0.8 mg/dL (0.7-1.2) 09/22/21 19:19 GFR Calculation Not Reportable 09/22/21 19:19 Glucose 97 mg/dL (65-115) 09/22/21 19:19 Calculated Osmolality 295 mOsm/kg (285-295) 09/22/21 19:19 Calcium 9.0 mg/dL (8.5-10.5) 09/22/21 19:19 Total Bilirubin 0.7 mg/dL (0.15-1.2) 09/22/21 19:19 AST 28 U/L (0-40) 09/22/21 19:19 ALT 31 U/L (0-41) 09/22/21 19:19 Alkaline Phosphatase 78 IU/L (40-130) 09/22/21 19:19 Total Protein 7.3 g/dL (6.6-8.7) 09/22/21 19:19 Albumin 4.3 g/dL (3.5-5.2) 09/22/21 19:19 Globulin 3.0 g/dL (1.3-4.6) 09/22/21 19:19 Nasal/Oral Coronavirus 2019 PCR Not detected 09/17/20 13:17 09/17/20 Imaging Data CXR: I personally reviewed and interpreted this imaging study as follows: My impression: Cardiomegaly. No evidence of infiltrative disease at this time. Discharge Plan Discharge Patient Disposition: Home Clinical Impression: COVID-19 Condition: Stable Prescriptions: No Action hydrocodone-acetaminophen [[place]] 5-325 mg tablet 1 tab PO Q4H PRN (Reason: pain) 7 Days Qty: 40 0RF (DME) Cock Up Splint See Rx Instructions .ROUTE .MEDSUPPLY Qty: 1 0RF Rx Instructions: As directed oxycodone-acetaminophen [Percocet] 5-325 mg tablet 1 tab PO Q4H PRN (Reason: pain) 7 Days Qty: 30 0RF atorvastatin [Lipitor] 20 mg Tablet 20 mg PO DAILY 0RF aspirin [Aspir-81] 81 mg Tablet,Delayed Release (Dr/Ec) 81 mg PO DAILY 0RF tamsulosin [Flomax] 0.4 mg Capsule 0.8 mg PO DAILY 0RF amlodipine [Norvasc] 10 mg Tablet 10 mg PO DAILY 0RF dutasteride [Avodart] 0.5 mg Capsule 0.5 mg PO DAILY 0RF multivitamin Tablet 1 tab PO DAILY 0RF Glucosamine Chondroitin 550-30-1 mg Capsule 1 cap PO DAILY 0RF tramadol 50 mg tablet 50 mg PO TID PRN (Reason: pain) Qty: 30 0RF Discharge Orders: Discharge ED (Routine); Ordered 09/22/21 Ordered By: Tanmay Schwartz Referrals: Nancy Ramirez MD [Primary Care Provider] - Discharge Diet: Advance as tolerated Discharge Activity: Increase activity as tolerated Patient Instructions: How to Recover from COVID-19 at Home (ED), Opioid Safety Activity Restrictions/Additional Instructions: As we discussed continue to hydrate yourself, to a regular diet. Continue to monitor your temperature as well as your oxygen level in your bloodstream using her pulse oximeter. Should your pulse oximeter show a value less than 90% consistently return for reevaluation or should you develop any concerning symptoms. Coding Level of Care Code ED Poker Room Manager for Jennifer Richard Exam Comprehensive
[2021-09-22 19:25] VITALS: BP 171/91; PULSE 56; RESP 18; O2SAT 95
[2021-09-22 19:26] VITALS: O2SAT 95
[2021-09-22 19:28] LABS: Basophils % 0.2 %; Hematocrit 45.5 % (42.0-52.0); Hemoglobin 15.2 g/dL (11.7-16.6); Lymphocytes # 1.9 10^3/uL (0.8-4.8); Lymphocytes % 29.5 %; Mean Corpuscular HGB Conc 33.4 g/dL (30.0-36.0); Mean Corpuscular Hemoglobin 28.4 pg (28.0-34.0); Mean Platelet Volume 12.1 fL (7.4-10.4); Monocytes # 0.6 10^3/uL (0.2-0.9); Nucleated Red Blood Cells % 0 %; Platelet Count 125 10^3/cmm (130-400); Red Blood Count 5.35 10^6/uL (4.1-5.3); Red Cell Distribution Width 13.2 % (12.1-15.1); White Blood Count 6.3 10^3/uL (4.0-10.0)
[2021-09-22 19:46] LABS: Albumin Level 4.3 g/dL (3.5-5.2); Alkaline Phosphatase 78 IU/L (40-130); Blood Urea Nitrogen 16 mg/dL (8-23); Carbon Dioxide 24 mmol/L (22-29); Chloride 105 mmol/L (98-107); Creatinine Clr Calc Pharmacy 100.2848; Glucose 97 mg/dL (65-115); Osmolality Calculated 295 mOsm/kg (285-295); Sodium 142 mmol/L (136-145); Total Bilirubin 0.7 mg/dL (0.15-1.2); Total Protein 7.3 g/dL (6.6-8.7)
[2021-09-22 20:11] LABS: Alanine Aminotransferase 31 U/L (0-41); Anion Gap 17.1 (5-19); Aspartate Amino Transferase 28 U/L (0-40); Potassium 4.1 mmol/L (3.5-5.1)
[2021-09-22] MEDS: lactated ringers 1,000 ML 1000 ML IV (20:31)
[2021-09-22 21:14] VITALS: BP 156/73; PULSE 54; RESP 17; O2SAT 98
== END 2021-09-22 21:11 | disposition home or self-care (01) ==
PROVIDERS: Emergency Provider Emergency Medicine; PCP Family Medicine
DX: U07.1 COVID-19 (principal); Z79.82 Long term (current) use of aspirin
CPT/HCPCS: 71045; 80053; 85025; 96360; 99283

== ENCOUNTER 2022-08-14 10:09 | Outpatient (CLI) | payer MEDICARE, SELFPAY ==
--- NOTE | 2022-08-14 10:27 | XR_ITS ---
WS: [id number] XR knee RT 3V* [id number] REASON FOR EXAM: R KNEE PAIN FINDINGS: Moderate to significant narrowing of the medial knee joint space with significant subchondral scleros is and marginal osteophytosis of the medial femoral condyle and medial tibial plateau. Moderate lateral knee joint compartment with moderate subchondral sclerosis. There appears to moderate narrowing of the patellofemoral joint space with moderate subchondral scler osis and marginal osteophytosis of the patella and adjacent femoral condyles. The patella appears mayo ewhat superior in location, however this may be due to the lack of flexion at the knee joint. Large complex calcific masses posterior to the right knee joint. XR/XR knee RT 3V* [id number] IMPRESSION: Moderate osteoarthritis of the right knee. Calcified masses are likely present in a popliteal cyst. The size and complexit y of the calcifications suggest other etiology than simple loose bodies. Possib ly crystal deposition disease or synovial chondromatosis.
== END 2022-08-14 10:10 | disposition home or self-care (01) ==
LOC: RAD 10:14
PROVIDERS: PCP Family Medicine; Visit Provider Family Medicine
DX: M17.11 Unilateral primary osteoarthritis, right knee (principal)
CPT/HCPCS: 73562

== ENCOUNTER → 2022-08-26 09:49 | Outpatient (BNVA) | payer MEDICARE, SELFPAY | PROVIDERS: PCP Family Medicine; Referring Provider Family Medicine; Visit Provider Orthopaedic Surgery | DX: M17.11 Unilateral primary osteoarthritis, right knee (principal) | CPT/HCPCS: 99213 ==

== ENCOUNTER → 2023-09-24 18:15 | Outpatient (BNVA) | payer MEDICARE, SELFPAY | PROVIDERS: PCP Family Medicine; Visit Provider Nurse Practitioner | DX: R10.9 Unspecified abdominal pain (principal) | CPT/HCPCS: 81000 ==

== ENCOUNTER → 2024-06-13 08:41 | Outpatient (BNVA) | payer MEDICARE, SELFPAY | PROVIDERS: PCP Family Medicine; Visit Provider Podiatrist Foot & Ankle Surgery | DX: M20.42 Other hammer toe(s) (acquired), left foot (principal); M21.612 Bunion of left foot; M77.42 Metatarsalgia, left foot; M24.575 Contracture, left foot | CPT/HCPCS: 73630; 99204 ==

== ENCOUNTER 2024-07-22 07:58 | Day surgery (SDC) | payer MEDICARE, SELFPAY ==
[2024-07-22] VITALS (10 sets, daily range): BP systolic 125–148; BP diastolic 69–97; PULSE 67–75; RESP 14–18; TEMP 36.4–36.6; O2SAT 92–97; BMI 33.0
[2024-07-22] MEDS: gabapentin 300 mg Capsule PO (08:31)
[2024-07-22] MEDS: CELEcoxib 200 mg Capsule 400 MG PO (08:31)
[2024-07-22] MEDS: sodium chloride 0.9% 1,000 ML 30 ML IV (08:31)
--- NOTE | 2024-07-22 08:57 | P.HPUD_ITS ---
Surgery/Procedure H&P Update DATE OF PROCEDURE: July 22, 2024 DATE H&P PERFORMED: 07/22/24 H&P UPDATE INFORMATION: I have reviewed H&P completed within last 30 days, I have examined patient prior to procedure, No changes to prior documentation and H&P is in [facility] [place] EMR on date indicated PREOP DIAGNOSIS: Hallux, metatarsalgia, hammertoe and tendon contracture all left foot. PLANNED PROCEDURE: Operation Date: 07/22/24 09:25 Proposed Procedures p Left first metatarsal phalangeal joint fusion(Left) - Grant Reed DPM s Gabriel osteotomy left second metatarsal(Left) - [place] Lemos left foot flexor tendon transfer(Left) - [place] Lem[place] left second hammertoe correction(Left) - Grant Reed DPM
--- NOTE | 2024-07-22 09:54 | PM.OPSURHP ---
Providers/Chief Complaint Primary Care Provider: Nancy Ramirez MD Chief Complaint: M20.42 History of Present Illness Luan Palafox is a 74 year old male presenting for a surgical consultation regarding foot deformities, specifically a hallux valgus (bunion) and hammer toe of the left foot. The patient reports significant discomfort, particularly associated with the hammer toe, which exacerbates when weight-bearing. 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 Initial conservative management has involved the use of protective padding to alleviate mechanical irritation; however, the patient expresses the persistence of symptoms. 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 Review of Systems General: Reports: 10 or more systems reviewed and unremarkable except in HPI and below Const: Denies: fever(s) or chills Eyes: Denies: change in vision Card: Denies: chest pain or palpitations Resp: Denies: dyspnea or productive cough GI: Denies: abdominal pain, nausea or vomiting : Denies: flank pain Musc: Reports: extremity pain, joint pain, joint stiffness, limited range of motion and deformity Skin/Breast: Reports: skin tenderness; Denies: rash Neuro: Reports: difficulty walking; Denies: numbness in extremities, sensory changes or frequent falls Psych: Denies: suicidal ideation Walter/Lymph: Denies: easy bruising Medications/Allergies Home Medications Medication Instructions Recorded Confirmed Last Taken Type amlodipine 10 mg tablet (Norvasc) 10 mg PO DAILY 08/31/19 07/22/24 07/21/24 History aspirin 81 mg tablet,delayed 81 mg PO DAILY 08/31/19 07/22/24 07/14/24 History release (Aspir-) atorvastatin 20 mg tablet (Lipitor) 20 mg PO DAILY 08/31/19 07/22/24 07/21/24 History dutasteride 0.5 mg capsule 0.5 mg PO DAILY 08/31/19 07/22/24 07/21/24 History (Avodart) tamsulosin 0.4 mg capsule (Flomax) 0.8 mg PO DAILY 08/31/19 07/22/24 07/21/24 History multivitamin 1 tab PO DAILY 0107/22/24 07/21/24 History Cock Up Splint #1 ea 10/03/20 06/13/24 Unknown Rx trazodone 50 mg tablet 50 mg PO DAILY 07/21/24 07/22/24 07/21/24 History Allergies Allergy/AdvReac Type Severity Reaction Status Date / Time No Known Allergies Allergy Verified 07/22/24 08:10 PFSH PFSH: Social History Smoking and tobacco/nicotine status: never used tobacco/nicotine Vital Signs Vitals Signs: Last Vital Signs Temp 97.8 F 07/22/24 08:11 Pulse 75 07/22/24 08:11 Resp 16 07/22/24 08:11 BP 148/97 07/22/24 08:11 Pulse Ox 94 07/22/24 08:11 O2 Del Method Room Air 07/22/24 08:11 Weight: Weight last 48 hrs Weight 230 lb Physical Exam Narrative: EXAM NARRATIVE: GENERAL: Patient is alert and oriented ?3 and in no acute distress. The following is a focused bilateral lower extremity exam. VASCULAR: Dorsalis pedis and posterior tibial arteries palpable +2. Capillary refill time less than 3 seconds to the distal hallux bilaterally. Calf is supple and nontender proximally and distally. Edema to the left lateral ankle. Pedal hair growth present. NEUROLOGICAL: Epicritic and protopathic sensations grossly intact to the lower extremities. +2 Achilles tendon reflex noted bilaterally. Negative Tinel sign upon percussion of lower extremity nerves. DERMATOLOGICAL: Mild ecchymosis to the left lateral ankle. No fracture blisters, no lacerations or abrasions, no open wounds to the lower extremities. MUSCULOSKELETAL: - Musculoskeletal- Observation of deformity at the first metatarsophalangeal joint (MPJ) of the left foot and the presence of a second hammer toe. Decreased flexion observed secondary to structural stiffness. Tenderness upon palpation consistent with mechanical irritation at the site of the callous. First metatarsal phalangeal joint/bunion deformity at the left foot is track bound and nonreducible, decreased dorsiflexion at 20 degrees with osseous end range of motion. Left great toe is underwriting the left second toe. Left second toe hammertoe contracture with sagittal plane dominance is nonreducible. Tenderness to palpation plantarly at the second metatarsal head. CARDIOVASCULAR: S1, S2, normal rate, normal rhythm. Dorsalis pedis and posterior tibial arteries palpable. LUNGS: Clear to auscltation, no use of acessory muscles, no crackles or wheezes. A&P Assessment and plan (1) Metatarsalgia, left foot: (2) Contracture, left foot: (3) Bunion, left foot: (4) Hammertoe of left foot: Plan Pain has been progressive over years, he was treated approximately 3 years ago and was outlined a conservative management plan which is no longer offering relief with accommodative shoes padding, spacing, anti-inflammatories topically and orally and activity modifications. X-ray left foot 3 views taken 06/13/2024 weightbearing demonstrates Cystic changes at the medial aspect of the left first metatarsal head . Arthrosis at the left second PIPJ, subluxation of the second MTPJ deviating medially, impressive gunbarrel sign and contracture with sagittal plane dominance of the left second toe Hallux noted to be an abducted position. Tibial sesamoid position: 6. 1 ? 2 IM angle is 16?. Hallux abductus angle is 40?. Metatarsal adductus angle is 2?. Sieberg index of 2mm. 74-year-old male with a history of hallux valgus presenting with severe deforming conditions of the left foot, including a bunion and a hammer toe, necessitating surgical repair. The chronic nature of the symptoms, traditionally managed via non-operative measures, has resulted in notable impairment of the patient's daily functional capacity. The recommendation for surgical correction involves fusion of the first MPJ and addressing the hammer toe deformity to prevent progression and alleviate associated discomfort. 1. Callus Surgical correction of underlying deformities is expected to provide relief from symptomatic callus formation. Discussion regarding the resolution of pressure-related calluses post-correction was held with the patient. 2. Hammer Toe Surgical intervention to rectify hammer toe on the left second digit concurrent with the bunion procedure. Will involve realignment and potential tenotomy or arthroplasty as indicated. The patient has been informed regarding the six-week recovery period post-operation. 3. Hallux Valgus Surgical correction via first MPJ fusion planned to correct the bunion deformity. The procedure is scheduled for July 22, with patient agreement on the anticipated recovery period. Risks, benefits, and postoperative expectations, including the need for immobilization, are discussed thoroughly. - Discontinue aspirin one week prior to the planned surgery date. 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 - Watch for signs of infection or complications postoperatively and report any concerns immediately. I reviewed at length with the patient, the risks, potential complications, benefits, alternatives, expectations, and typical outcomes associated with the surgery. The risks and potential complications were explained in detail, including but not limited to infection, wound dehiscence or soft tissue complications, bleeding and hematoma, chronic edema, neuritis or nerve damage producing numbness or chronic pain, CRPS, failure to relieve pain or worsening pain, thick / painful / unsightly scar, limited motion / stiffness, malposition, delayed union, malunion, or nonunion, fracture, reaction to implants, anesthetic complications, venous thromboembolism, and deformity recurrence. I discussed the notion of no regrets with the patient as it pertains to complications and outcomes. The patient seemed to understand the nature of the proposed care and required convalescence. They asked appropriate questions, answered to their satisfaction. They are aware no guarantees can be made as to a satisfactory outcome and they understand there may be other possible unforeseen complications or outcomes not listed here that will be treated accordingly if they arise. There were no written or implied guarantees given to the patient. They gave informed consent to proceed. Planning on left first metatarsal phalangeal joint fusion, left Gabriel osteotomy, left flexor tendon transfer, left second hammertoe correction outpatient for July 22 2024 sooner if availability allows Coding Level of Care Code Acute Code for [facility] Diagnoses Metatarsalgia, left foot M77.42 Contracture, left foot M24.575 Bunion, left foot M21.612 Hammertoe of left foot M20.42
--- NOTE | 2024-07-22 10:05 | P.ANESASSM_ITS ---
Pre-Anesthetic Assessment Height/Weight: Height 5 ft 10 in Weight 230 lb Temp Pulse Resp BP Pulse Ox O2 Del Method 97.8 F 75 16 148/97 94 Room Air 07/22/24 08:11 07/22/24 08:11 07/22/24 08:11 07/22/24 08:11 07/22/24 08:11 07/22/24 08:11 Preop Diagnosis: Hallux, metatarsalgia, hammertoe and tendon contracture all left foot. Operation Date: 07/22/24 09:25 Proposed Procedures p Left first metatarsal phalangeal joint fusion(Left) - [place] Lemos Gabriel osteotomy left second metatarsal(Left) - [place] Lemos left foot flexor tendon transfer(Left) - [place] Lemos left second hammertoe correction(Left) - Grant Reed DPM Was Beta Mari taken within 24 hours: N/A Was Clonidine taken within 24 hours: N/A Last intake: Intake Last Liquid Date 07/21/24 Last Liquid Time 21:00 Last Solid Date 07/21/24 Last Solid Time 18:00 Social No alcohol and No tobacco Exam alert, oriented x 3, clear to auscultation bilaterally and regular rate & rhythm Airway Submandibular: within normal limits Cervical ROM: within normal limits Mallampati: Class III Dentition: false Anesthetic Plan ASA status: 2 Anesthesia: General Other: No prior issues with anesthesia NPO since yesterday History of hypertension on amlodipine. Preop BP 148/97 Denies any pulmonary issues METs greater than 4 Plan for general anesthesia with local via surgeon Medications/Allergies Home Medications Medication Instructions Recorded Confirmed Last Taken Type amlodipine 10 mg tablet (Norvasc) 10 mg PO DAILY 08/31/19 07/22/24 07/21/24 History aspirin 81 mg tablet,delayed 81 mg PO DAILY 08/31/19 07/22/24 07/14/24 History release (Aspir-) atorvastatin 20 mg tablet (Lipitor) 20 mg PO DAILY 08/31/19 07/22/24 07/21/24 History dutasteride 0.5 mg capsule 0.5 mg PO DAILY 08/31/19 07/22/24 07/21/24 History (Avodart) tamsulosin 0.4 mg capsule (Flomax) 0.8 mg PO DAILY 08/31/19 07/22/24 07/21/24 History multivitamin 1 tab PO DAILY 09/01/19 07/22/24 07/21/24 History Cock Up Splint #1 ea 10/03/20 06/13/24 Unknown Rx trazodone 50 mg tablet 50 mg PO DAILY 07/21/24 07/22/24 07/21/24 History Allergies Allergy/AdvReac Type Severity Reaction Status Date / Time No Known Allergies Allergy Verified 07/22/24 08:10 Current Medications Generic Name Dose Route Start Last Admin Trade Name Freq PRN Reason Stop Dose Admin Sodium Chloride 1,000 mls @ 30 mls/hr 07/22/24 08:15 07/22/24 08:31 Sodium Chloride 0.9% IV 07/23/24 08:14 30 mls/hr .Q24H MICKY Administration PFSH Anesthesia Social History Smoking and tobacco/nicotine status: never used tobacco/nicotine Data Anesthesia Cardiac Studies: 2 No Data to Display
[2024-07-22] MEDS: ceFAZolin 2,000 mg SDV 2000 MG IVP (10:16)
[2024-07-22] MEDS: BUPivacaine 0.5% INJ 10 mL 20 ML INJECTION (10:42)
[2024-07-22] MEDS: BUPivacaine liposome 13.3 mg/mL SDV 20 mL 266 MG INJECTION (10:42)
--- NOTE | 2024-07-22 11:57 | W.PM.BPON ---
Date of Procedure: 10/16/23 Surgeon: Grant Reed DPM Video Software Engineer(s): Roel Procedure(s) performed: Left first metatarsal phalangeal joint fusion. Left second hammertoe correction. Left flexor tendon transfer. Left Gabriel osteotomy. Findings of the procedure(s): None Estimated blood loss: 2 mL Specimen(s) removed: None Post-operative diagnosis: Left bunion, left hammertoe, left foot contracture, left metatarsalgia
--- NOTE | 2024-07-22 11:58 | P.OP_ITS ---
Operative Report Date of procedure: July 22, 2024 Pre-op diagnosis: Left foot pain M79.672 Bunion of left foot M21.612 Hammer toe of left foot M20.42 Metatarsalgia, left foot M77.42 Contracture, left foot M24.575 Post-op diagnosis: Left foot pain M79.672 Bunion of left foot M21.612 Hammer toe of left foot M20.42 Metatarsalgia, left foot M77.42 Contracture, left foot M24.575 Procedure done: 1) left first metatarsal phalangeal joint fusion. CPT code 05835 2) Gabriel osteotomy left second metatarsal. CPT code 01838 3) left foot flexor tendon transfer. CPT code 41086 4) left second hammertoe correction. CPT code 89314 Surgeon: Grant Reed DPM Bridge Painter: Stormy Johnson Estimated blood loss: 2 milliliters 111 minutes IV fluids: See intraoperative documentation Urine output: None Complications: None Brief History: Pain has been progressive over years, he was treated approximately 3 years ago and was outlined a conservative management plan which is no longer offering relief with accommodative shoes padding, spacing, anti-inflammatories topically and orally and activity modifications. X-ray left foot 3 views taken 06/13/2024 weightbearing demonstrates Cystic changes at the medial aspect of the left first metatarsal head Arthrosis at the left second PIPJ, subluxation of the second MTPJ deviating medially, impressive gunbarrel sign and contracture with sagittal plane dominance of the left second toe Hallux noted to be an abducted position. Tibial sesamoid position: 6. 1 ? 2 IM angle is 16?. Hallux abductus angle is 40?. Metatarsal adductus angle is 2?. Sieberg index of 2mm. 74-year-old male with a history of hallux valgus presenting with severe deforming conditions of the left foot, including a bunion and a hammer toe, necessitating surgical repair. The chronic nature of the symptoms, traditionally managed via non-operative measures, has resulted in notable impairment of the patient's daily functional capacity. The recommendation for surgical correction involves fusion of the first MPJ and addressing the hammer toe deformity to prevent progression and alleviate associated discomfort. 1. Callus Surgical correction of underlying deformities is expected to provide relief from symptomatic callus formation. Discussion regarding the resolution of pressure- related calluses post-correction was held with the patient. 2. Hammer Toe Surgical intervention to rectify hammer toe on the left second digit concurrent with the bunion procedure. Will involve realignment and potential tenotomy or arthroplasty as indicated. The patient has been informed regarding the six-week recovery period post-operation. 3. Hallux Valgus Surgical correction via first MPJ fusion planned to correct the bunion deformity. The procedure is scheduled for July 22, with patient agreement on the anticipated recovery period. Risks, benefits, and postoperative expectations, including the need for immobilization, are discussed thoroughly. Procedure: Under mild sedation the patient was brought to the operating room and remained on the gurney in supine position. A timeout was performed. Anesthesia was then administered by the anesthesia service. Local anesthesia was injected by myself consisting of 20 cc of 0.5% Marcaine plain in a left Lopez block and second ray block fashion with an additional 20 cc of Exparel infiltrated subcutaneously in a grid like fashion to the left first and second ray dorsally and plantarly. Well-padded pneumatic tourniquet applied to the left ankle. The left lower extremity was scrubbed, prepped and draped utilizing normal aseptic technique. Left foot and ankle were then exanguinated with an Esmarch bandage and tourniquet inflated to 250 mmHg. Attention was directed to an impressive bunion deformity that was nonreducible to the left first metatarsal phalangeal joint with an osseous prominence medially and crossover toe deformity of the second toe overriding the great toe. A linear longitudinal incision was made medial and parallel to the extensor hallucis longus tendon at the medial aspect of the left first metatarsophalangeal joint through skin with a #15 blade with dissection carried down to the layer periosteum and joint capsule utilizing a combination of sharp and blunt technique. Care was taken to retract and preserve neurovascular and tendinous structures. All bleeders were ligated and cauterized as necessary. Incision Was Performed and the Head of the first metatarsal and base of the proximal phalanx of the left first metatarsal phalangeal joint were freed from their soft tissue and capsular attachments and denuded of articular surface with cone and cup reamers followed by subchondral drilling with fenestrating drill bit this was held in slight valgus in the transverse plane, neutral in the frontal plane and slight dorsiflexion and fixated utilizing a dorsal locking plate provided by [place] [employer] with 3.5 mm locking and nonlocking screws with excellent bony apposition and compression noted and excellent positioning for ideal ambulation of first metatarsophalangeal arthrodesis. Intraoperative C-arm confirmed excellent placement of hardware and alignment of the medial column in all AP, oblique and lateral views. The incision was then irrigated with saline solution and closed with capsule and periosteal structures reapproximated with 3-0 Vicryl, subcutaneous tissue with 4-0 Vicryl and skin with 4-0 nylon. Attention was then directed to the second dorsal aspect of the second metatarsal phalangeal joint where an incision was made directly over the second metatarsal phalange joint through skin with #15 blade with dissection carried down to joint capsule at the dorsal aspect of the left second metatarsophalangeal joint with a capsular incision performed and a second metatarsal ostomy then carried out with a sagittal saw consistent with Gabriel osteotomy oriented from distal dorsal to proximal plantar and shortening the head of the second metatarsal level with the third metatarsal this was approximately 3 mm and fixated with snap off screw x 2 provided by [place] [employer] with excellent bony apposition and compression noted. The dorsal aspect of the second metatarsophalangeal incision was then elongated distally where attention was directed to the proximal interphalange joint of the left second toe, extensor tenotomy was performed transversely and reflected proximally dorsally with a mosquito hemostat and a capsule was performed both dorsally and plantarly accessing the left second toe proximal interphalangeal som int which was then distracted and the flexor digitorum longus tendon was split longitudinally and transected at its most distal margin and wrapped both medial laterally and HUMI sections plantar flexing the second toe down to neutral and effectively transferring the flexor digitorum longus dorsally to correct the sagittal plane cock-up deformity of the left second toe this flexor digitorum longus that was split longitudinally and David section fashion was then sewed to itself with 4-0 Vicryl at the level of the diaphysis of the left second proximal phalanx dorsally. Incision was irrigated with saline solution at this time. Attention was then directed to the head of the proximal phalanx and base of the intermediate phalanx of the left second toe which were prepped for arthrodesis and hammertoe correction utilizing a sagittal saw and rongeur denuding all articular surface down to subchondral bleeding bone the incision was irrigated with saline solution and the hammertoe was then corrected with a intramedullary implant provided by [employer]on Bowling this was a hammer tube 3.5 mm in diameter with 10 degree angle and plantarflexion this was implanted within the intramedullary canal of the head of the proximal phalanx and base of the intermediate phalanx with excellent bony apposition and compression noted and further stabilized with a K wire crossing the second metatarsal phalangeal joint to stabilize the second ray this will be removed in clinic in approximately 4 to 6 weeks. Incisions were irrigated with saline solution and closed in a layered fashion with the extensor tendon reapproximated with 4-0 Vicryl subcutaneous tissue with 4-0 Vicryl and skin with 4-0 nylon. All incisions were dressed with Xeroform, sterile gauze, Kerlix, Joe wrap followed by application of a cam boot to the left lower extremity. Tourniquet was deflated and a prompt hyperemic response is noted to the distal digits of the left foot. Patient tolerated the procedure and anesthesia well and was transferred to the PACU with vital signs stable and vascular status intact. Following a period of postoperative monitoring to be discharged home without home care instructions and scheduled follow-up. He is also provided my cell phone number to contact me with any postoperative questions or concerns.
--- NOTE | 2024-07-22 13:08 | ANE.PACU2 ---
Inpatient post-anesthesia follow up: Airway intact: Yes Vital signs: Temperature 97.6 F Pulse Rate 68 Respiratory Rate 17 Blood Pressure 145/79 Pulse Oximetry 94 Oxygen Delivery Me thod Room Air Oxygen Flow Rate 2 Fraction of Inspir ed Oxygen Hydration adequate: Yes Nausea and vomiting: No Pain level: 1 Mental status: Baseline
== END 2024-07-22 13:08 | disposition home or self-care (01) ==
PROVIDERS: PCP Family Medicine; Visit Provider Podiatrist Foot & Ankle Surgery
PROC: (CPT 28750; principal; 2024-07-22 09:15)
PROC: (CPT 28308; 2024-07-22 09:15)
PROC: (CPT 27691; 2024-07-22 09:15)
PROC: (CPT 28285; 2024-07-22 09:15)
DX: M24.575 Contracture, left foot (principal); M77.42 Metatarsalgia, left foot; M20.42 Other hammer toe(s) (acquired), left foot; M21.612 Bunion of left foot
CPT/HCPCS: 27691; 28285; 28308; 28750; 76000; C1713 ×2; C9290; J0690; J2704; J3010; J3490; J7030

== ENCOUNTER → 2024-07-25 13:41 | Outpatient (BNVA) | payer MEDICARE, SELFPAY | PROVIDERS: PCP Family Medicine; Visit Provider Podiatrist Foot & Ankle Surgery | DX: Z98.890 Other specified postprocedural states (principal) | CPT/HCPCS: 99024 ==

== ENCOUNTER → 2024-08-04 15:15 | Outpatient (BNVA) | payer MEDICARE, SELFPAY | PROVIDERS: PCP Family Medicine; Visit Provider Podiatrist Foot & Ankle Surgery | DX: Z98.890 Other specified postprocedural states (principal) | CPT/HCPCS: 73630; 99024 ==

== ENCOUNTER → 2024-08-18 14:15 | Outpatient (BNVA) | payer MEDICARE, SELFPAY | PROVIDERS: PCP Family Medicine; Visit Provider Podiatrist Foot & Ankle Surgery | DX: Z98.890 Other specified postprocedural states (principal) | CPT/HCPCS: 73630; 99024 ==

== ENCOUNTER → 2024-09-01 13:50 | Outpatient (BNVA) | payer MEDICARE, SELFPAY | PROVIDERS: PCP Family Medicine; Visit Provider Podiatrist Foot & Ankle Surgery | DX: Z98.890 Other specified postprocedural states (principal) | CPT/HCPCS: 73630; 99024 ==

== ENCOUNTER → 2024-09-29 13:04 | Outpatient (BNVA) | payer MEDICARE, SELFPAY | PROVIDERS: PCP Family Medicine; Visit Provider Podiatrist Foot & Ankle Surgery | DX: Z98.890 Other specified postprocedural states (principal); M20.41 Other hammer toe(s) (acquired), right foot; M20.42 Other hammer toe(s) (acquired), left foot | CPT/HCPCS: 73630; 99024 ==

== ENCOUNTER 2024-10-31 11:07 | Outpatient (CLI) | payer MEDICARE, SELFPAY | END 2024-10-31 11:08 | disposition home or self-care (01) | LOC: SPT 11:08 | PROVIDERS: PCP Family Medicine; Visit Provider Podiatrist Foot & Ankle Surgery | DX: Z46.89 Encounter for fitting and adjustment of other specified devices (principal); M21.611 Bunion of right foot; M20.41 Other hammer toe(s) (acquired), right foot; M20.42 Other hammer toe(s) (acquired), left foot; M77.42 Metatarsalgia, left foot | CPT/HCPCS: L3030 ==

== ENCOUNTER → 2024-12-14 10:46 | Outpatient (BNVA) | payer MEDICARE, SELFPAY | PROVIDERS: PCP Family Medicine; Visit Provider Podiatrist Foot & Ankle Surgery | DX: Z98.890 Other specified postprocedural states (principal); T84.498A Other mechanical complication of other internal orthopedic devices, implants and grafts, initial encounter; Y79.2 Prosthetic and other implants, materials and accessory orthopedic devices associated with adverse incidents; M96.0 Pseudarthrosis after fusion or arthrodesis | CPT/HCPCS: 73630; 99214 ==

== ENCOUNTER 2024-12-23 05:42 | Day surgery (SDC) | payer MEDICARE, SELFPAY ==
[2024-12-23] VITALS (12 sets, daily range): BP systolic 121–157; BP diastolic 66–92; PULSE 55–71; RESP 13–18; TEMP 36.1–36.3; O2SAT 90–96; BMI 33.0
[2024-12-23] MEDS: sodium chloride 0.9% 1,000 ML 30 ML IV (06:11)
[2024-12-23] MEDS: CELEcoxib 200 mg Capsule 400 MG PO (06:23)
[2024-12-23] MEDS: pregabalin 150 mg Capsule 300 MG PO (06:24)
--- NOTE | 2024-12-23 06:31 | ANES.PREANE2 ---
Pre-Anesthetic Assessment Height/Weight: Height 1.78 m Weight 104.326 kg Temp Pulse Resp BP Pulse Ox O2 Del Method 97.3 F L 71 18 145/87 96 Room Air 12/23/24 05:57 12/23/24 05:57 12/23/24 05:57 12/23/24 05:57 12/23/24 05:57 12/23/24 05:57 Preop Diagnosis: Painful hardware and nonunion left foot. Operation Date: 12/23/24 07:00 Proposed Procedures p Hardware Removal left foot(Left) - Grant Reed DPM s Arthrodesis Foot left first Metatarsophalangeal Joint Arthrodesis(Left) - [place] Bone Autograft Calcaneal Autograft(Left) - Grant Reed DPM Familial anesthetic complications: NOne Was Beta Mari taken within 24 hours: N/A Was Clonidine taken within 24 hours: N/A Last intake: Intake Last Liquid Date 12/22/24 Last Liquid Time 21:30 Last Solid Date 12/22/24 Last Solid Time 17:30 Social No alcohol and No tobacco Exam alert, oriented x 3, clear to auscultation bilaterally and regular rate & rhythm Airway Mallampati: Class I Dentition: false CV/HEM Hypertension and Myocardial Infarction (1999 per patient, no stents. Was told it was stress-related more than anything else. No further issues, able to achieve 4 METS) Metabolic Hyperlipidemia Anesthetic Plan ASA status: 3 Anesthesia: General Risk of > 500 ml blood loss (7ml/kg in children): No Medications/Allergies Home Medications ?Medication ?Instructions ?Recorded ?Confirmed ?Last Taken ?Type amlodipine 10 mg tablet (Norvasc) 10 mg PO DAILY 08/31/19 12/23/24 12/22/24 History aspirin 81 mg tablet,delayed 81 mg PO DAILY 08/31/19 12/23/24 12/17/24 History release (Aspir-) atorvastatin 20 mg tablet (Lipitor) 20 mg PO DAILY 08/31/19 12/23/24 12/22/24 History dutasteride 0.5 mg capsule 0.5 mg PO DAILY 08/31/19 12/23/24 12/22/24 History (Avodart) tamsulosin 0.4 mg capsule (Flomax) 0.8 mg PO DAILY 08/31/19 12/23/2425 History multivitamin 1 tab PO DAILY 09/01/19 12/23/24 12/22/24 History Cock Up Splint #1 ea 10/03/20 12/14/24 Unknown Rx trazodone 50 mg tablet 50 mg PO DAILY 07/21/24 12/23/24 12/22/24 History Sole supports #1 ea 09/29/24 12/14/24 Unknown Rx Allergies Allergy/AdvReac Type Severity Reaction Status Date / Time No Known Allergies Allergy Verified 12/23/24 05:52 Current Medications Generic Name Dose Route Start Last Admin Trade Name Freq PRN Reason Stop Dose Admin Sodium Chloride 1,000 mls @ 30 mls/hr 12/23/24 06:00 12/23/24 06:11 Sodium Chloride 0.9% IV 12/24/24 05:59 30 mls/hr .Q24H MICKY Administration PFSH Anesthesia Social History Smoking and tobacco/nicotine status: never used tobacco/nicotine Second hand smoke exposure: No Lives independently: Yes Household members: spouse Housing: House Marital status: Number of children: 2 Current occupational status: retired
--- NOTE | 2024-12-23 06:36 | W.PM.OPSUD ---
Surgery/Procedure H&P Update DATE OF PROCEDURE: December 23, 2024 DATE H&P PERFORMED: 12/14/24 H&P UPDATE INFORMATION: I have reviewed H&P completed within last 30 days, I have examined patient prior to procedure, No changes to prior documentation and Risks and benefits of the procedure reviewed PREOP DIAGNOSIS: Painful hardware and nonunion left foot. PLANNED PROCEDURE: Operation Date: 12/23/24 07:00 Proposed Procedures p Hardware Removal left foot(Left) - [place] Lemos Arthrodesis Foot left first Metatarsophalangeal Joint Arthrodesis(Left) - [place] Bone Autograft Calcaneal Autograft(Left) - Grant Reed DPM
[2024-12-23] MEDS: ceFAZolin 2,000 mg SDV 2000 MG IVP (07:02)
[2024-12-23] MEDS: tranexamic acid 1,000 mg/10mL SDV 1000 MG IV (07:02)
[2024-12-23] MEDS: BUPivacaine liposome 13.3 mg/mL SDV 20 mL 266 MG INJECTION (07:20)
[2024-12-23] MEDS: BUPivacaine 0.5% INJ 10 mL 20 ML INJECTION (07:20)
--- NOTE | 2024-12-23 08:13 | P.BOP_ITS ---
Date of Procedure: 10/16/23 Surgeon: Grant Reed DPM Chemical Process Equipment Operator(s): Tae Procedure(s) performed: Hardware removal, calcaneal autograft and first metatarsal phalangeal joint fusion left foot. Findings of the procedure(s): Nonunion left foot failed hardware left foot Estimated blood loss: 2 mL Specimen(s) removed: None Post-operative diagnosis: Hallux valgus and nonunion with failed hardware and painful hardware left foot.
--- NOTE | 2024-12-23 08:14 | PM.OP ---
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 Procedure done: 1) hardware removal left foot. CPT code 80520 2) left first metatarsal phalangeal joint fusion. CPT code 01273 3) left calcaneal autograft. CPT code 06798 Implants: [place] revisional first metatarsophalangeal joint arthrodesis plate with locking and nonlocking 3.5 millimeter screws. 3-0 Vicryl, 4-0 Vicryl, 4 nylon. Pathology: None Surgeon: Grant Reed DPM Senior Engineer: Tae Estimated blood loss: 2 52 Urine output: None Complications: none Findings: Nonunion left first metatarsal phalangeal joint Brief History: - X-ray of Left Foot AP and oblique as well as lateral view taken in clinic 12/14/2024 demonstrates Motion present at the previous attempted arthrodesis site; broken plate observed. Failed hardware and lucency indicative of motion at first metatarsal phalange joint appreciated. Assessment and Plan 74-year-old male with a history of left first metatarsophalangeal joint fusion presenting with increased pain and swelling at the left great toe joint. The examination and imaging studies point to a failure of the initial fusion due to inadequate bone healing and a broken plate. Revision surgery is proposed to enhance stability and healing through the use of larger hardware, bone grafts, and possibly a bone stimulator. 1. Failed Left First Metatarsophalangeal Joint Fusion Revision surgery is planned to address the failed fusion and broken hardware. The surgical strategy will involve employing a larger plate to stabilize the joint, utilizing autologous bone grafts to promote enhanced bone healing, and the potential installation of a bone stimulator, subject to insurance coverage. Until surgery, the patient should wear a protective boot to prevent additional complications. - Wear the protective boot at all times except when resting or as advised. - Minimize weight-bearing activities on the left foot. - Avoid taking baby aspirin starting the Thursday prior to the scheduled surgery. - Prepare for revision surgery next Thursday and await confirmation call on . - Plan for potential use of a knee scooter post-operatively for six weeks. - Monitor swelling and strive for its reduction pre-surgery by limiting activity and elevating the foot when possible. - Contact the clinic with any concerns or unexpected changes in condition. The patient exhibits a failed left first metatarsophalangeal joint fusion evidenced by increased pain and a broken plate, due to inadequate bone healing. Initial successful-seeming outcomes have reverted to chronic issues affecting ambulation and daily activities. Revision surgery is deemed necessary to restore function and alleviate discomfort. The surgical approach will involve a more robust fixation and possible bone stimulation, to address the non-union. Prioritizing stabilization and biological enhancement of bone healing, I recommend this intervention anticipatorily capitalizing on the patient's potential for recovery, despite less frequent occurrence of such complications. I reviewed at length with the patient, the risks, potential complications, benefits, alternatives, expectations, and typical outcomes associated with the surgery. The risks and potential complications were explained in detail, including but not limited to infection, wound dehiscence or soft tissue complications, bleeding and hematoma, chronic edema, neuritis or nerve damage producing numbness or chronic pain, CRPS, failure to relieve pain or worsening pain, thick / painful / unsightly scar, limited motion / stiffness, malposition, delayed union, malunion, or nonunion, fracture, reaction to implants, anesthetic complications, venous thromboembolism, and deformity recurrence. I discussed the notion of no regrets with the patient as it pertains to complications and outcomes. The patient seemed to understand the nature of the proposed care and required convalescence. They asked appropriate questions, answered to their satisfaction. They are aware no guarantees can be made as to a satisfactory outcome and they understand there may be other possible unforeseen complications or outcomes not listed here that will be treated accordingly if they arise. There were no written or implied guarantees given to the patient. They gave informed consent to proceed. Planning on hardware removal resection of nonunion and revisional arthrodesis of left first metatarsal phalangeal joint with calcaneal autograft. Procedure: Under mild sedation the patient was brought to the operating room and remained on the gurney in supine position. A timeout was performed. Anesthesia was then administered by the anesthesia service. Local anesthesia was injected by myself consisting of 20 cc of 0.5% Marcaine plain in a left Lopez block fashion. Additional 20 cc of Exparel infiltrated subcutaneously in a grid like fashion proximal to the operative site left foot. Well-padded pneumatic tourniquet applied of the left ankle. The left lower extremity was scrubbed, prepped and draped utilizing normal aseptic technique. Attention was directed to the left foot where over the previous cicatrix a linear incision was performed through skin with a #15 blade with dissection carried down through subcutaneous tissue to the layer of hardware utilizing a combination of sharp and blunt technique. Care was taken to retract and preserve neurovascular and tendinous structures. All bleeders were ligated and cauterized as necessary. Hardware was removed in total without fragmentation or failure consisting of 6 screws and 1 plate these were passed from the operative field. Incision was irrigated with copious amounts of sterile saline solution. Inspection of the arthrodesis site left first metatarsal phalangeal joint revealed fibrous nonunion with mobility appreciated. Fibrous tissue was resected sharply down to healthy bleeding bone followed by fenestrating drill bit utilized for subchondral drilling at the base of the proximal phalanx and head of the first metatarsal of the left foot. Attention was then directed to the lateral aspect of the left calcaneal body where a approximate 1.5 cm incision was made within a safe zone avoiding sural nerve and peroneal tendons posterior to the lateral malleolus and inferior to the lateral malleolus confirmed with fluoroscopy, autogenous calcaneus was harvested a total of 4 cc which was then packed at the arthrodesis site of the left first metatarsophalangeal joint as autogenous bone graft the left first metatarsal plantar joint was fixated temporarily and ideal arthrodesis position with slight valgus, neutral in the frontal plane and slight dorsiflexion, when simulating weightbearing loading the left foot with a flat metal plate the left great toe rested gently on the plate lightly touching without excessive dorsiflexion or plantarflexion. Next arthrodesis site was fixated utilizing [place] revisional plate with 3.5 mm locking and nonlocking screws with excellent bony apposition and compression noted not violating the hallux interphalangeal joint confirmed with AP oblique and lateral views. The incision was irrigated with saline solution and closed in a layered fashion with the joint capsule reapproximated with 3-0 Vicryl, subcutaneous tissue with 4-0 Vicryl and skin with 4-0 nylon. Dressing consisting of Xeroform, 4 x 4 gauze, Kerlix and Joe wrap followed by application of a cam boot to the left lower extremity. Tourniquet was deflated and a prompt hyperemic response is noted to the distal digits of the left foot. Patient tolerated the procedure and anesthesia well and was transferred to the PACU with vital signs stable and vascular status intact. Following a period of postoperative monitoring he will be discharged home without home care instructions and scheduled follow-up. Is to remain strict nonweightbearing and elevate left foot while resting.
[2024-12-23] MEDS: HYDROcodone-acetaminophen 10-325 mg Tablet 1 TAB PO (09:23)
--- NOTE | 2024-12-23 10:00 | ANE.PACU2 ---
Inpatient post-anesthesia follow up: Airway intact: Yes Vital signs: Temperature 97.1 F Pulse Rate 56 Respiratory Rate 18 Blood Pressure 149/82 Pulse Oximetry 92 Oxygen Delivery Me thod Room Air Oxygen Flow Rate 2 Fraction of Inspir ed Oxygen Hydration adequate: Yes Nausea and vomiting: No Pain level: 1 Mental status: Baseline
== END 2024-12-23 09:59 | disposition home or self-care (01) ==
PROVIDERS: PCP Family Medicine; Visit Provider Podiatrist Foot & Ankle Surgery
PROC: (CPT 28750; principal; 2024-12-23 07:00)
PROC: (CPT 28740; 2024-12-23 07:00)
PROC: (CPT 28750; 2024-12-23 07:00)
DX: T84.84XA Pain due to internal orthopedic prosthetic devices, implants and grafts, initial encounter (principal); T84.098A Other mechanical complication of other internal joint prosthesis, initial encounter; M96.0 Pseudarthrosis after fusion or arthrodesis; I10 Essential (primary) hypertension; I25.2 Old myocardial infarction; E78.5 Hyperlipidemia, unspecified; Z79.82 Long term (current) use of aspirin
CPT/HCPCS: 28750; 20680; 20902; C1713; C9359; J0666; J0690; J1100; J2704; J3010; J3490; J7030; J9999

== ENCOUNTER → 2025-01-05 13:19 | Outpatient (BNVA) | payer MEDICARE, SELFPAY | PROVIDERS: PCP Family Medicine; Visit Provider Podiatrist Foot & Ankle Surgery | DX: Z98.890 Other specified postprocedural states (principal); M96.0 Pseudarthrosis after fusion or arthrodesis; M79.672 Pain in left foot | CPT/HCPCS: 73630; 99024 ==

== ENCOUNTER → 2025-02-02 09:29 | Outpatient (BNVA) | payer MEDICARE, SELFPAY | PROVIDERS: PCP Nurse Practitioner Family; Visit Provider Podiatrist Foot & Ankle Surgery | DX: Z98.890 Other specified postprocedural states (principal); M96.0 Pseudarthrosis after fusion or arthrodesis; M79.672 Pain in left foot | CPT/HCPCS: 73630; 99024 ==

== ENCOUNTER → 2025-02-09 08:53 | Outpatient (BNVA) | payer MEDICARE, SELFPAY | PROVIDERS: PCP Nurse Practitioner Family; Visit Provider Podiatrist Foot & Ankle Surgery | DX: Z98.890 Other specified postprocedural states (principal); M96.0 Pseudarthrosis after fusion or arthrodesis; M79.672 Pain in left foot | CPT/HCPCS: 73630; 99024 ==

== ENCOUNTER → 2025-02-23 08:07 | Outpatient (BNVA) | payer MEDICARE, SELFPAY | PROVIDERS: PCP Nurse Practitioner Family; Visit Provider Podiatrist Foot & Ankle Surgery | DX: Z98.890 Other specified postprocedural states (principal); M96.0 Pseudarthrosis after fusion or arthrodesis; M79.672 Pain in left foot | CPT/HCPCS: 73630; 99024 ==

== ENCOUNTER → 2025-03-23 08:01 | Outpatient (BNVA) | payer MEDICARE, SELFPAY | PROVIDERS: PCP Nurse Practitioner Family; Visit Provider Podiatrist Foot & Ankle Surgery | DX: M79.672 Pain in left foot (principal); M96.0 Pseudarthrosis after fusion or arthrodesis; Z98.890 Other specified postprocedural states | CPT/HCPCS: 73630 ==

== ENCOUNTER 2025-03-23 10:42 | Outpatient (CLI) | payer MEDICARE, SELFPAY | END 2025-03-23 10:43 | disposition home or self-care (01) | LOC: SPT 10:43 | PROVIDERS: PCP Nurse Practitioner Family; Visit Provider Podiatrist Foot & Ankle Surgery | DX: Z47.89 Encounter for other orthopedic aftercare (principal); Z98.890 Other specified postprocedural states | CPT/HCPCS: L3031 ==

== ENCOUNTER → 2025-04-27 10:55 | Outpatient (BNVA) | payer MEDICARE, SELFPAY | PROVIDERS: PCP Nurse Practitioner Family; Visit Provider Podiatrist Foot & Ankle Surgery | DX: Z98.890 Other specified postprocedural states (principal); M96.0 Pseudarthrosis after fusion or arthrodesis; M79.672 Pain in left foot | CPT/HCPCS: 73630; 99213 ==

== ENCOUNTER → 2025-06-01 10:19 | Outpatient (BNVA) | payer MEDICARE, SELFPAY | PROVIDERS: PCP Nurse Practitioner Family; Visit Provider Podiatrist Foot & Ankle Surgery | DX: M96.0 Pseudarthrosis after fusion or arthrodesis (principal); M79.672 Pain in left foot; Z98.890 Other specified postprocedural states | CPT/HCPCS: 73630; 99213 ==

== ENCOUNTER → 2025-07-06 11:09 | Outpatient (BNVA) | payer MEDICARE, SELFPAY | PROVIDERS: PCP Nurse Practitioner Family; Visit Provider Podiatrist Foot & Ankle Surgery | DX: M96.0 Pseudarthrosis after fusion or arthrodesis (principal); M79.672 Pain in left foot; Z98.890 Other specified postprocedural states | CPT/HCPCS: 73630; 99213 ==